=== PATIENT | male | born 1995 | race Caucasian/White ===

== ENCOUNTER 2025-03-01 15:59 | Emergency (ER) | payer MEDICAID ==
[~2025-03-01] VITALS: Ht 167.6 cm; Wt 81.8 kg
[2025-03-01 16:16] VITALS: BP 117/65; PULSE 62; RESP 18; TEMP 97.5; O2SAT 97
[2025-03-01] MEDS: RABIES VACCINE, HUMAN DIPLOID/PF 2.5 UNITS/ML VIAL IM. ONE (18:19)
[2025-03-01] MEDS: RABIES IMMUNE GLOBULIN/PF 150 UNITS/ML 10 ML VIAL IM. ONE (18:21)
[2025-03-01] MEDS ORDERED: AMOX-457 PO (18:26)
[2025-03-01] MEDS: PERTUSS(ACELL),DIPH,TET/PF 0.5 ML SYRINGE [ADULT] IM. ONE (19:06)
== END 2025-03-01 19:10 | disposition home or self-care (01) ==
LOC: EMS 15:59
DX: S41.152A Open bite of left upper arm, initial encounter (principal); Z86.19 Personal history of other infectious and parasitic diseases; Z59.00 Homelessness unspecified; W54.0XXA Bitten by dog, initial encounter; Y93.89 Activity, other specified; Y92.89 Other specified places as the place of occurrence of the external cause; Y99.8 Other external cause status
CPT/HCPCS: 90375; 90471; 90472; 90675; 90715; 96372; 99284